=== PATIENT | female | born 1995 | race American Indian/Alaskan Native ===

== ENCOUNTER 2018-07-01 17:02 | Emergency (ER) | payer OTHER ==
[2018-07-01 17:10] VITALS: BP 131/62
[2018-07-01] MEDS ORDERED: MOTRIN PO ONE (17:19)
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
== END 2018-07-01 18:21 | disposition home or self-care (01) ==
LOC: ED 17:02
DX: S13.4XXA Sprain of ligaments of cervical spine, initial encounter (principal); S39.012A Strain of muscle, fascia and tendon of lower back, initial encounter; F17.200 Nicotine dependence, unspecified, uncomplicated; Z88.2 Allergy status to sulfonamides; V89.2XXA Person injured in unspecified motor-vehicle accident, traffic, initial encounter; Y93.89 Activity, other specified; Y92.89 Other specified places as the place of occurrence of the external cause; Y99.9 Unspecified external cause status
CPT/HCPCS: 72040; 72100; 99283